=== PATIENT | female | born 2000 | race Caucasian/White ===

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

== ENCOUNTER 2020-01-08 11:11 | Emergency (ER) | payer MEDICAID, OTHER ==
[~2020-01-08] VITALS: Ht 157.5 cm; Wt 62.2 kg
[2020-01-08 11:49] LABS: BASOPHILS % (AUTO) 1 % (0-1); EOSINOPHILS % (AUTO) 1 % (1-7); LYMPHOCYTES % (AUTO) 30 % (22-44); MEAN CORPUSCULAR HEMOGLOBIN 29.4 pg (27.0-34.8); MEAN CORPUSCULAR HGB CONC 33.1 g/dL (32.4-35.8); MEAN PLATELET VOLUME 7.6 fL (7.4-10.4); MONOCYTES % (AUTO) 5 % (2-9); NEUTROPHILS % (AUTO) 64 % (42-75); PLATELET COUNT 505 x10^3/uL (130-400); RED BLOOD COUNT 5.34 x10^6/uL (3.82-5.3)
[2020-01-08 11:50] LABS: MICROSCOPIC AUTO
[2020-01-08 11:57] LABS: ALBUMIN 4.3 g/dL (3.4-5.0); ANION GAP 6 mmol/L (5-15); CALCIUM 9.5 mg/dL (8.5-10.1); CHLORIDE 106 mmol/L (98-107)
[2020-01-08 12:24] LABS: ALANINE AMINOTRANSFERASE 16 U/L (12-78); ALKALINE PHOSPHATASE 70 U/L (45-117); BILIRUBIN,TOTAL 0.4 mg/dL (0.2-1.0); CREATININE 0.83 mg/dL (0.55-1.02); TOTAL PROTEIN 8.8 g/dL (6.4-8.2)
[2020-01-08 13:02] LABS: MD SCAN
--- NOTE | 2020-01-08 13:46 | NUR ---
PA IN ROOM FOR EVAL. PT CO R SIDED ABD PAIN. DIFFICULT TO FINISH VOIDING. LABS DONE. MOM AT BEDSIDE.
--- NOTE | 2020-01-08 13:58 | NUR ---
PT STS SHE HAS HAD RUPTURED UTERINE CYST IN PAST. SP MARSH MADE AWARE. REPORT TO LANETTE VARGHESE.
[2020-01-08] MEDS ORDERED: ONDANSETRON ODT 4 MG PO ONE (14:00)
[2020-01-08] MEDS ORDERED: KETOROLAC 30 MG/1 ML IM ONE (14:00)
[2020-01-08] MEDS ORDERED: ONDANSETRON ODT 4 MG ONE (14:18)
[2020-01-08] MEDS ORDERED: KETOROLAC 60 MG/2 ML ONE (14:18)
--- NOTE | 2020-01-08 14:34 | NUR ---
PT RESTING IN ROOM. VS STABLE. CALL LIGHT IN PLACE. WILL CONTINUE TO MONITOR.
--- NOTE | 2020-01-08 15:37 | NUR ---
PT IN CT
[2020-01-08 16:33] VITALS: BP 118/69
--- NOTE | 2020-01-08 16:33 | NUR ---
SP FLYNN HAS UPDATED PATIENT. PATIENT READY FOR DC.
== END 2020-01-08 16:47 | disposition home or self-care (01) ==
LOC: ED 12:42
DX: R10.31 Right lower quadrant pain (principal); R11.0 Nausea; R30.0 Dysuria
CPT/HCPCS: 36415; 74176; 80053; 81001; 83690; 84703; 85025; 87086; 96372; 99285; J1885; Q0162